=== PATIENT | male | born 1960 | race Caucasian/White ===

== ENCOUNTER 2017-06-14 20:10 | Emergency (ER) | payer MEDICAID ==
[~2017-06-14] VITALS: Ht 180.3 cm; Wt 81.8 kg
[~2017-06-14 20:10] MED LIST: HYDR-569 PO
[2017-06-14] MEDS ORDERED: DICL75TA5 PO (22:13)
[2017-06-14] MEDS ORDERED: CYCL-1 PO (22:13)
[2017-06-14] MEDS ORDERED: HYDROcodone/acetaminophen 5mg/325mg tablet PO ONE (22:15)
[2017-06-14] MEDS ORDERED: ketorolac trometh inj. 60 MG/2 ML VIAL IM ONE (22:15)
[2017-06-14 22:29] VITALS: BP 145/95
== END 2017-06-14 22:30 | disposition home or self-care (01) ==
LOC: ER 20:11
DX: M54.5 Low back pain (principal); G89.29 Other chronic pain
CPT/HCPCS: 96372; 99283; J1885

== ENCOUNTER 2017-07-07 16:13 | Emergency (ER) | payer MEDICAID ==
[~2017-07-07] VITALS: Ht 180.3 cm; Wt 90.0 kg
[~2017-07-07 16:13] MED LIST changes: +CYCL-1 PO; +DICL75TA5 PO
[2017-07-07] MEDS ORDERED: LORazepam 0.5 MG tablet PO PRN (16:45)
[2017-07-07] MEDS ORDERED: BUPIVAcaine/PF 2.5 mg/ml (0.25%) 30ml vial IJ ONE (16:45)
[2017-07-07] MEDS ORDERED: ibuprofen tablet 400 MG TABLET PO ONE (16:45)
[2017-07-07] MEDS ORDERED: morphine 2 MG/ML inj. syringe IM ONE (16:45)
[2017-07-07] MEDS ORDERED: TETanus/Pertussis (Acell)/Diphther VAC/PF (Tdap-Adult) 0.5ml syringe IM ONE (16:45)
[2017-07-07] MEDS ORDERED: HYDR-565 PO (18:05)
[2017-07-07] MEDS ORDERED: MUPI22OI30 TOP (18:05)
[2017-07-07] MEDS ORDERED: AMOX-422 PO (18:05)
[2017-07-07 18:34] VITALS: BP 128/91
== END 2017-07-07 18:31 | disposition home or self-care (01) ==
LOC: ER 16:13
DX: K13.0 Diseases of lips (principal); G89.29 Other chronic pain; Z88.1 Allergy status to other antibiotic agents; Z88.5 Allergy status to narcotic agent; Z79.899 Other long term (current) drug therapy
CPT/HCPCS: 10160; 90471; 90715; 96372; 99284; A6449; J2270; J3490

== ENCOUNTER 2018-01-08 19:14 | Emergency (ER) | payer MEDICAID ==
[~2018-01-08] VITALS: Ht 154.9 cm; Wt 76.3 kg
[2018-01-08] MEDS ORDERED: SULF1TAB49 PO (23:17)
[2018-01-08] MEDS ORDERED: CEPH-572 PO (23:17)
[2018-01-08] MEDS ORDERED: sulfamethoxazole/trimethoprim DS (800/160mg) tablet PO ONE (23:20)
[2018-01-08] MEDS ORDERED: cephalexin 250mg capsule PO ONE (23:20)
[2018-01-08 23:56] VITALS: BP 139/100
== END 2018-01-08 23:58 | disposition home or self-care (01) ==
LOC: ER 19:14
DX: L03.211 Cellulitis of face (principal); L01.00 Impetigo, unspecified; G89.29 Other chronic pain; Z79.899 Other long term (current) drug therapy
CPT/HCPCS: 99283

== ENCOUNTER 2018-05-06 16:58 | Emergency (ER) | payer MEDICAID ==
[~2018-05-06] VITALS: Ht 180.3 cm; Wt 86.3 kg
[~2018-05-06 16:58] MED LIST changes: +HYDR-4383 PO; -HYDR-569 PO
[2018-05-06 17:18] VITALS: BP 126/85
[2018-05-06] MEDS ORDERED: SULF1TAB49 PO (18:36)
[2018-05-06] MEDS ORDERED: CEPH500C5 PO (18:36)
[2018-05-06] MEDS ORDERED: ACET1TAB12 PO (18:36)
== END 2018-05-06 18:46 | disposition home or self-care (01) ==
LOC: ER 16:58
DX: L02.11 Cutaneous abscess of neck (principal); L03.221 Cellulitis of neck; G89.29 Other chronic pain; F17.200 Nicotine dependence, unspecified, uncomplicated; Z79.2 Long term (current) use of antibiotics; Z79.899 Other long term (current) drug therapy
CPT/HCPCS: 99283

== ENCOUNTER 2019-04-07 18:39 | Emergency (ER) | payer MEDICAID ==
[~2019-04-07] VITALS: Ht 180.3 cm; Wt 71.0 kg
[~2019-04-07 18:39] MED LIST changes: +ACET1TAB12 PO; +CEPH500C5 PO
[2019-04-07 18:46] VITALS: BP 111/85
[2019-04-07] MEDS ORDERED: CEPH250T PO (21:37)
== END 2019-04-07 21:46 | disposition home or self-care (01) ==
LOC: ER 18:40
DX: L73.8 Other specified follicular disorders (principal); G89.29 Other chronic pain
CPT/HCPCS: 99283

== ENCOUNTER 2019-09-27 12:13 | Inpatient (IN) | payer MEDICAID ==
[~2019-09-27] VITALS: Ht 180.3 cm; Wt 75.0 kg
[~2019-09-27 12:13] MED LIST changes: -CEPH500C5 PO
--- NOTE | 2019-09-27 13:21 | NUR ---
Dayne [phone] jeff
[2019-09-27] MEDS ORDERED: magnesium citrate 296ml oral solution PO ONE (13:25)
[2019-09-27] MEDS ORDERED: ketorolac tromethamine 15mg/ml inj. IV ONE (13:25)
[2019-09-27] MEDS ORDERED: normal saline 1000ML IV soln IVB ONE (13:25)
[2019-09-27] MEDS ORDERED: bisacodyl 10mg suppository rectal RC ONE (13:25)
[2019-09-27 13:41] LABS: BASOPHILS % (AUTO) 0.2 % (0-1); EOSINOPHILS % (AUTO) 0 % (0-6); HEMATOCRIT 41.3 % (42.0-52.0); LYMPHOCYTES # (AUTO) 1.2 X10'3 (1.1-4.8); LYMPHOCYTES % (AUTO) 6.2 % (21-51); MEAN CORPUSCULAR HEMOGLOBIN 29.1 PG (27.0-31.0); MEAN CORPUSCULAR HGB CONC 33.9 g/dL (33.0-36.5); MEAN CORPUSCULAR VOLUME 85.9 FL (78-98); MEAN PLATELET VOLUME 7.6 FL (7.4-10.4); MONOCYTES # (AUTO) 1.7 X10'3 (0-0.9); MONOCYTES % (AUTO) 8.9 % (2-12); NEUTROPHILS # (AUTO) 16.5 X10'3 (1.8-7.7); NEUTROPHILS % (AUTO) 84.7 % (42-75); PLATELET COUNT 448 X10'3 (140-440); RED CELL DISTRIBUTION WIDTH 14.3 % (11.5-14.5); WHITE BLOOD COUNT 19.5 X10'3 (4.5-11.0)
[2019-09-27 14:00] LABS: ALANINE AMINOTRANSFERASE 17 U/L (12-78); ALBUMIN 3.2 G/DL (3.4-5.0); ALBUMIN/GLOBULIN RATIO 0.6 (1.1-1.5); ALKALINE PHOSPHATASE 68 IU/L (46-116); ANION GAP 11 (8-16); ASPARTATE AMINO TRANSFERASE 28 U/L (10-37); BILIRUBIN,TOTAL 0.4 MG/DL (0.1-1.0); BLOOD UREA NITROGEN 33 MG/DL (7-18); BUN/CREATININE RATIO 14.4 (5.4-32.0); CALCIUM 9.4 MG/DL (8.5-10.1); CHLORIDE 103 MMOL/L (99-107); CREATININE 2.29 MG/DL (0.60-1.10); GLUCOSE 131 MG/DL (70-104); LIPASE 82 U/L (73-393); POTASSIUM 4.6 MMOL/L (3.5-5.1); SODIUM 140 MMOL/L (135-145); TOTAL CARBON DIOXIDE 25.8 MMOL/L (24-32); TOTAL PROTEIN 8.2 G/DL (6.4-8.2); eGFR 30 ML/MIN
[2019-09-27] MEDS ORDERED: LIDOcaine 2% 10ml TOPICAL JELLY (Urojet) TP ONE (15:25)
[2019-09-27] MEDS ORDERED: mag hydrox/Alum hydrox/simeth 30ml oral suspension PO PRN (15:45)
[2019-09-27] MEDS ORDERED: acetaminophen 325mg tablet PO PRN ×2 (15:45)
[2019-09-27] MEDS ORDERED: magnesium hydroxide 30ml (MOM) UD suspension PO PRN (15:45)
[2019-09-27] MEDS ORDERED: HYDROcodone/acetaminophen 5mg/325mg tablet PO PRN (15:45)
[2019-09-27] MEDS ORDERED: metoclopramide 5 mg/ml inj IV PRN (15:45)
[2019-09-27] MEDS ORDERED: morphine 2 MG/ML inj. syringe IV PRN ×2 (15:45)
[2019-09-27] MEDS ORDERED: ciprofloxacin 250mg tablet PO ONE (16:45)
--- NOTE | 2019-09-27 17:17 | NUR ---
GALDAMEZ PLACED BY UROLOGIST TO GRAVITY DRAINAGE. PT SLEEPING IN BED NO DISTRESS NOTED.
[2019-09-27] MEDS: normal saline 1000ml 1,000 ML IV SCH (17:29)
[2019-09-27] MEDS ORDERED: NO HOME MEDS (17:54)
[2019-09-27 18:10] LABS: CLARITY,URINE SLIGHTLY CLOUDY (Clear); GLUCOSE, URINE NEGATIVE (Neg); KETONES,URINE NEGATIVE (Neg); LEUKOCYTE ESTERASE ,URINE NEGATIVE (Neg); NITRITES, URINE NEGATIVE (Neg); OCCULT BLOOD,URINE LARGE (Neg); PH,URINE 5.5 (4.8-8.0); PROTEIN,URINE NEGATIVE (Neg); UROBILINOGEN,URINE 0.2 E.U/dL (0.2-1.0)
[2019-09-27 18:14] LABS: COLOR,URINE AMBER (Yellow); UA COLLECTION TYPE FOLEY CATH
[2019-09-27 18:22] LABS: RBC,URINE TNTC /HPF (0-2); WBC,URINE 0-4 /HPF (0-4)
[2019-09-27 18:26] LABS: BACTERIA,URINE NONE SEEN /HPF (Neg); SQUAMOUS EPITHELIAL CELL,UR FEW /LPF (FEW)
--- NOTE | 2019-09-27 19:40 | NUR ---
Patient in room ED 6. I have received report from Tami ED RN and had the opportunity to ask questions and assume patient care.
[2019-09-27 20:04] VITALS: BP 127/65
[2019-09-27] MEDS: tamsulosin 0.4mg capsule PO SCH (21:18)
[2019-09-28 00:15] VITALS: BP 130/78
[2019-09-28] MEDS: normal saline 1000ml 1,000 ML IV SCH ×3 (04:20→22:29)
[2019-09-28] MEDS: HYDROcodone/acetaminophen 10/325mg tab PO PRN ×4 (05:03→23:10)
[2019-09-28 06:15] LABS: BASOPHILS % (AUTO) 0.2 % (0-1); EOSINOPHILS % (AUTO) 0.1 % (0-6); HEMATOCRIT 37.3 % (42.0-52.0); HEMOGLOBIN 12.5 g/dl (14.0-17.9); LYMPHOCYTES # (AUTO) 1.7 X10'3 (1.1-4.8); LYMPHOCYTES % (AUTO) 11.2 % (21-51); MEAN CORPUSCULAR HEMOGLOBIN 29.1 PG (27.0-31.0); MEAN CORPUSCULAR HGB CONC 33.6 g/dL (33.0-36.5); MEAN CORPUSCULAR VOLUME 86.5 FL (78-98); MEAN PLATELET VOLUME 8.3 FL (7.4-10.4); MONOCYTES # (AUTO) 1.1 X10'3 (0-0.9); MONOCYTES % (AUTO) 7.1 % (2-12); NEUTROPHILS # (AUTO) 12.3 X10'3 (1.8-7.7); NEUTROPHILS % (AUTO) 81.4 % (42-75); PLATELET COUNT 360 X10'3 (140-440); RED BLOOD COUNT 4.31 X10'6 (4.70-6.10); RED CELL DISTRIBUTION WIDTH 14.6 % (11.5-14.5); WHITE BLOOD COUNT 15.1 X10'3 (4.5-11.0)
--- NOTE | 2019-09-28 06:32 | NUR ---
Problems reprioritized. Patient report given, questions answered & plan of care reviewed with CHAKA Isbell.
[2019-09-28 06:38] LABS: ALBUMIN 2.4 G/DL (3.4-5.0); ANION GAP 7 (8-16); BLOOD UREA NITROGEN 27 MG/DL (7-18); BUN/CREATININE RATIO 21.8 (5.4-32.0); CALCIUM 8.1 MG/DL (8.5-10.1); CHLORIDE 108 MMOL/L (99-107); CREATININE 1.24 MG/DL (0.60-1.10); GLUCOSE 120 MG/DL (70-104); POTASSIUM 3.6 MMOL/L (3.5-5.1); SODIUM 141 MMOL/L (135-145); TOTAL CARBON DIOXIDE 26.1 MMOL/L (24-32); eGFR 60 ML/MIN
[2019-09-28 07:30] VITALS: BP 121/67
[2019-09-28] MEDS ORDERED: bisacodyl 10mg suppository rectal RC PRN (10:00)
[2019-09-28] MEDS: magnesium hydroxide 30ml (MOM) UD suspension PO PRN (10:19)
[2019-09-28 12:22] VITALS: BP 109/70
--- NOTE | 2019-09-28 16:43 | NUR ---
PAGER ID: [phone] MESSAGE: Wesly Magana 350B FYI pt. still c/o abd after having liquid BM. Refusing to ambulate. Akilah [id number]
[2019-09-28 18:15] VITALS: BP 142/75
--- NOTE | 2019-09-28 18:36 | NUR ---
Gave report to Savannah NULL.
[2019-09-28] MEDS: docusate sod 100mg capsule PO SCH (19:05)
[2019-09-28] MEDS: ondansetron/PF 4mg/2ml inj IV PRN (19:05)
[2019-09-28] MEDS: tamsulosin 0.4mg capsule PO SCH (21:10)
[2019-09-28] MEDS: temazepam 15mg capsule PO PRN (22:28)
[2019-09-29 00:15] VITALS: BP 126/80
[2019-09-29] MEDS: HYDROcodone/acetaminophen 10/325mg tab PO PRN ×5 (03:15→22:01)
[2019-09-29] MEDS: ondansetron/PF 4mg/2ml inj IV PRN ×2 (03:17→20:35)
[2019-09-29] MEDS: magnesium hydroxide 30ml (MOM) UD suspension PO PRN (03:43)
[2019-09-29 05:56] LABS: BASOPHILS % (AUTO) 0.1 % (0-1); EOSINOPHILS # (AUTO) 0.1 X10'3 (0-0.9); EOSINOPHILS % (AUTO) 0.5 % (0-6); HEMATOCRIT 34.8 % (42.0-52.0); HEMOGLOBIN 11.6 g/dl (14.0-17.9); LYMPHOCYTES # (AUTO) 2.4 X10'3 (1.1-4.8); LYMPHOCYTES % (AUTO) 18.2 % (21-51); MEAN CORPUSCULAR HGB CONC 33.4 g/dL (33.0-36.5); MEAN CORPUSCULAR VOLUME 86.8 FL (78-98); MONOCYTES # (AUTO) 1.2 X10'3 (0-0.9); NEUTROPHILS # (AUTO) 9.6 X10'3 (1.8-7.7); NEUTROPHILS % (AUTO) 72.2 % (42-75); PLATELET COUNT 334 X10'3 (140-440); RED BLOOD COUNT 4.01 X10'6 (4.70-6.10); RED CELL DISTRIBUTION WIDTH 14.3 % (11.5-14.5); WHITE BLOOD COUNT 13.3 X10'3 (4.5-11.0)
[2019-09-29 06:12] LABS: ALBUMIN 2.2 G/DL (3.4-5.0); ANION GAP 4 (8-16); BLOOD UREA NITROGEN 19 MG/DL (7-18); BUN/CREATININE RATIO 22.6 (5.4-32.0); CALCIUM 7.9 MG/DL (8.5-10.1); CHLORIDE 106 MMOL/L (99-107); CREATININE 0.84 MG/DL (0.60-1.10); GLUCOSE 100 MG/DL (70-104); POTASSIUM 3.4 MMOL/L (3.5-5.1); SODIUM 137 MMOL/L (135-145); TOTAL CARBON DIOXIDE 27.5 MMOL/L (24-32); eGFR > 90 ML/MIN
--- NOTE | 2019-09-29 06:31 | NUR ---
Patient in room [facility] 350. I have received report from Savannah and had the opportunity to ask questions and assume patient care.
--- NOTE | 2019-09-29 06:37 | NUR ---
Problems reprioritized. Patient report given, questions answered & plan of care reviewed with CHAKA Escobar.
[2019-09-29 07:00] VITALS: BP 139/82
[2019-09-29] MEDS: docusate sod 100mg capsule PO SCH ×2 (08:06→20:35)
[2019-09-29] MEDS: normal saline 1000ml 1,000 ML IV SCH ×2 (09:41→17:52)
[2019-09-29 11:00] VITALS: BP 134/80
--- NOTE | 2019-09-29 12:56 | NUR ---
PAGER ID: [phone] MESSAGE: Mr. Wesly Shearer in 350B has a potassium of 3.4. May we have the replacement protocol order?, thank you Luz #[phone]
--- NOTE | 2019-09-29 15:14 | NUR ---
PAGER ID: [phone] MESSAGE: ManfrdeMr. Jarrell' in 350B potassium was 3.4 this morning, may we order the protocol for replacement? Please advise, thank you Luz # [phone]
--- NOTE | 2019-09-29 18:07 | NUR ---
Problems reprioritized. Patient report given, questions answered & plan of care reviewed with Savannah.
[2019-09-29 18:15] VITALS: BP 132/82
--- NOTE | 2019-09-29 18:44 | NUR ---
Patient in room [facility] 350. I have received report from CHAKA Escobar and had the opportunity to ask questions and assume patient care.
--- NOTE | 2019-09-29 20:03 | NUR ---
Have not received response from mika MYRICK regarding K 3.4. Paged Dr. Hitchcock. PAGER ID: [phone] MESSAGE: 350B Chino Jarrell 59yo. DX 09/26 Obstructive uropathy. K 3.4 this morning. Would like K+ replacement protocol.
[2019-09-29] MEDS ORDERED: potassium Cl 20 mEq SR tablet PO PRN (20:20)
[2019-09-29] MEDS ORDERED: potassium CL 10mEq/100ml bag 100 ML IV PRN ×2 (20:20)
--- NOTE | 2019-09-29 20:27 | NUR ---
Receive order from Dr. Hitchcock. Order has been placed for K+ replacement.
[2019-09-29] MEDS: tamsulosin 0.4mg capsule PO SCH (20:35)
[2019-09-29] MEDS: temazepam 15mg capsule PO PRN (20:35)
[2019-09-29] MEDS: potassium Cl 20 mEq SR tablet PO PRN (20:35)
[2019-09-29] MEDS: ciprofloxacin 250mg tablet PO SCH (22:01)
[2019-09-30 00:18] VITALS: BP 131/89
[2019-09-30] MEDS: potassium Cl 20 mEq SR tablet PO PRN ×2 (00:39→05:26)
[2019-09-30] MEDS: HYDROcodone/acetaminophen 10/325mg tab PO PRN ×2 (02:31→09:10)
[2019-09-30] MEDS: normal saline 1000ml 1,000 ML IV SCH (02:31)
[2019-09-30 05:09] LABS: BASOPHILS # (AUTO) 0.1 X10'3 (0-0.2); BASOPHILS % (AUTO) 0.5 % (0-1); EOSINOPHILS # (AUTO) 0.3 X10'3 (0-0.9); EOSINOPHILS % (AUTO) 2.5 % (0-6); HEMATOCRIT 36.3 % (42.0-52.0); HEMOGLOBIN 12.1 g/dl (14.0-17.9); LYMPHOCYTES # (AUTO) 2.8 X10'3 (1.1-4.8); LYMPHOCYTES % (AUTO) 21.1 % (21-51); MEAN CORPUSCULAR HEMOGLOBIN 28.8 PG (27.0-31.0); MEAN CORPUSCULAR HGB CONC 33.3 g/dL (33.0-36.5); MEAN CORPUSCULAR VOLUME 86.5 FL (78-98); MEAN PLATELET VOLUME 7.8 FL (7.4-10.4); MONOCYTES % (AUTO) 7.8 % (2-12); NEUTROPHILS % (AUTO) 68.1 % (42-75); PLATELET COUNT 363 X10'3 (140-440); RED CELL DISTRIBUTION WIDTH 13.9 % (11.5-14.5); WHITE BLOOD COUNT 13.1 X10'3 (4.5-11.0)
[2019-09-30 05:22] LABS: ALBUMIN 2.2 G/DL (3.4-5.0); ANION GAP 4 (8-16); BLOOD UREA NITROGEN 12 MG/DL (7-18); BUN/CREATININE RATIO 16.4 (5.4-32.0); CHLORIDE 104 MMOL/L (99-107); CREATININE 0.73 MG/DL (0.60-1.10); GLUCOSE 100 MG/DL (70-104); POTASSIUM 3.8 MMOL/L (3.5-5.1); SODIUM 134 MMOL/L (135-145); TOTAL CARBON DIOXIDE 26.1 MMOL/L (24-32); eGFR > 90 ML/MIN
--- NOTE | 2019-09-30 06:26 | NUR ---
Problems reprioritized. Patient report given, questions answered & plan of care reviewed with CHAKA Batista.
[2019-09-30 07:00] VITALS: BP 151/84
[2019-09-30] MEDS ORDERED: K and/or MAG REPLACEMENT MC SCH (08:00)
[2019-09-30] MEDS: docusate sod 100mg capsule PO SCH (09:06)
[2019-09-30] MEDS: ciprofloxacin 250mg tablet PO SCH (09:06)
[2019-09-30 11:00] VITALS: BP 128/87
[2019-09-30] MEDS ORDERED: tamsulosin capsule PO (11:11)
[2019-09-30] MEDS ORDERED: CIPR250T4 PO (11:11)
[2019-09-30] MEDS ORDERED: DOCU-148 PO (11:30)
--- NOTE | 2019-09-30 13:55 | NUR ---
Patient discharged home into the care of daughter. Patient verbalized and demonstrated an understanding of how to utilize their willis. Patient will make follow up appointment with MD Aly within one week. Patient alert, oriented, and appropriate for discharge. Patient IV removed. Patient willis left in place. Patient left with all belongings and medications sent to preferred pharmacy. Patient escorted down by a member of the staff.
[2019-09-30] MEDS ORDERED: lactobacillus rhamnosus 10,000 MMU CELLS/CAPSULE PO SCH (20:00)
== END 2019-09-30 13:50 | disposition home or self-care (01) | DRG 501 ==
LOC: ER 12:14 → ED HOLD 15:44 → SUR 3N 19:50
PROVIDERS: ADMIT Internal Medicine; ATTEND Internal Medicine
PROC: 0T9B70Z Drainage of Bladder with Drainage Device, Via Natural or Artificial Opening (ICD-10-PCS; principal; 2019-09-27)
DX: N40.1 Benign prostatic hyperplasia with lower urinary tract symptoms (principal); N17.9 Acute kidney failure, unspecified; K59.00 Constipation, unspecified; F17.210 Nicotine dependence, cigarettes, uncomplicated; N13.9 Obstructive and reflux uropathy, unspecified; N13.2 Hydronephrosis with renal and ureteral calculous obstruction; D72.829 Elevated white blood cell count, unspecified; R33.8 Other retention of urine; G89.29 Other chronic pain; M54.9 Dorsalgia, unspecified
CPT/HCPCS: 36415; 74018; 74176; 80048; 80053; 81001; 83690; 85025; 87081; 99285; G0378; J1885; J2405; J7030

== ENCOUNTER 2020-01-11 18:19 | Emergency (ER) | payer MEDICAID ==
[~2020-01-11] VITALS: Ht 180.3 cm; Wt 65.4 kg
[~2020-01-11 18:19] MED LIST changes: -ACET1TAB12 PO; +CIPR250T4 PO; -CYCL-1 PO; -DICL75TA5 PO; +DOCU-148 PO; -HYDR-4383 PO; +NO HOME MEDS; +tamsulosin capsule PO
[2020-01-11 18:25] VITALS: BP 141/101
--- NOTE | 2020-01-11 19:26 | NUR ---
Pt's willis connected to a new leg bag drainage bag due to the previous one leaking.
== END 2020-01-11 19:35 | disposition home or self-care (01) ==
LOC: ER 18:20
DX: T83.038A Leakage of other urinary catheter, initial encounter (principal); G89.29 Other chronic pain; Z72.89 Other problems related to lifestyle; Z79.2 Long term (current) use of antibiotics; Z79.899 Other long term (current) drug therapy; Y84.6 Urinary catheterization as the cause of abnormal reaction of the patient, or of later complication, without mention of misadventure at the time of the procedure; Y92.89 Other specified places as the place of occurrence of the external cause
CPT/HCPCS: 51702; 99281; 99284